=== PATIENT | male | born 1990 | race Caucasian/White ===

== ENCOUNTER 2024-03-27 23:22 | Emergency (ER) | payer OTHER ==
[2024-03-27] MEDS: Ibuprofen 600 MG Tab PO ONE (23:40)
== END 2024-03-27 23:48 ==
LOC: MW.ED 23:22
DX: V49.49XA Driver injured in collision with other motor vehicles in traffic accident, initial encounter; Y93.89 Activity, other specified; Z75.8 Other problems related to medical facilities and other health care
CPT/HCPCS: 71045; 99284; A9270; 99283